=== PATIENT | female | born 1940 | race Caucasian/White ===

== ENCOUNTER → 2017-08-08 | Day surgery (SDC) | payer OTHER ==
[~2017-08-08] VITALS: Ht 160 cm; Wt 77.5 kg
[~2017-08-08] MED LIST: *HYDROmorphone PF 0.5 MG/0.5 ML PERIprocedure ONLY ONE; *diphenhydrAMINE HCL 50 MG/ML VIAL PERIprocedural Use ONLY ONE; *morphine SULFATE 4 MG/ML PERIprocedure ONLY ONE; ACETAMINOPHEN 500 MG CPLT PO PRN; ASCO100029 PO; CALC1TAB87 PO; CHLORHEXIDINE GLUCONATE 2 % 1 PACK (2 CLOTHS) TOPICAL PRN; CHOL5000 PO; COQ-30CA2 PO; DEXAMETHASONE SOD PHOS 4 MG/ML VIAL ONE; DO NOT ADM ANY ANTICOAGULANT DRUGS PRN; EPINEPHrine HCL (1:1000) 1 MG/ML VIAL ONE; INSULIN HUMAN REGULAR 1,000 UNITS/10 ML VIAL SQ PRN; IODI150T PO; LACTATED RINGER'S 1000 ML IV PRN; LACTCAP8 PO; LECI12002 PO; LUTE6CAP2 PO; MELA5 PO; METOPROLOL TARTRATE 25 MG TAB PO PRN; MSM1000C PO; OMEP20TA93 PO; POVIDONE IODINE 5% (ANTISEPSIS KIT) 4 APPLICATIONS EACH NARE PRN; SODIUM CHLORID 0.9% 500 ML IV PRN; TOBRAMYCIN/DEXAMETHASONE OPTH OINT 3.5 GM TUBE ONE; TRIAMCINOLONE ACETONIDE/PF 40 MG/ML OPTH VIAL ONE; VITA1CAP7 PO; VITACAP7 PO; ceFAZolin INJ 1,000 MG VIAL ONE; oxyCODONE/ACETAMINOPHEN 5 MG/325 MG TAB PO PRN
[2017-08-08 11:54] LABS: AUTOMATED NEUTROPHIL # 4.2 TH/MM3 (1.8-7.7); BASOPHIL % 0.6 % (0.0-2.0); EOSINOPHIL # 0.1 TH/MM3 (0-0.4); EOSINOPHIL % 1.5 % (0.0-4.0); HEMATOCRIT 39.3 % (35.0-46.0); HEMOGLOBIN 13.2 GM/DL (11.6-15.3); LYMPH % 29.5 % (9.0-44.0); MEAN CELL VOLUME 85.6 FL (80.0-100.0); MEAN CORPUSCULAR HEMOGLOBIN 28.8 PG (27.0-34.0); MEAN CORPUSCULAR HGB CONC 33.6 % (32.0-36.0); MEAN PLATELET VOLUME 9.8 FL (7.0-11.0); MONO % 6.8 % (0.0-8.0); MONOCYTE # 0.5 TH/MM3 (0-0.9); NEUT % 61.6 % (16.0-70.0); PLATELET COUNT 182 TH/MM3 (150-450); RED BLOOD COUNT 4.59 MIL/MM3 (4.00-5.30); RED CELL DISTRIBUTION WIDTH 13.9 % (11.6-17.2); WHITE BLOOD COUNT 6.9 TH/MM3 (4.0-11.0)
[2017-08-08] MEDS: CYCLOPENTOLATE HCL 1% OPHT SOLN 2 ML BTL LEFT EYE SCH ×3 (12:30→12:55)
[2017-08-08] MEDS: ATROPINE SULFATE 1% OPHT SOLN 5 ML BTL LEFT EYE SCH ×3 (12:31→12:55)
[2017-08-08] MEDS: PHENYLEPHRINE HCL 2.5% OPTH SOLN 2 ML BTL LEFT EYE SCH ×3 (12:32→12:55)
[2017-08-08] MEDS: TROPICAMIDE 1% OPHT SOLN 15 ML BTL LEFT EYE SCH ×3 (12:33→12:55)
--- NOTE | 2017-08-08 15:07 | MP ---
cc: Charmaine Etienne MD DATE OF OPERATION: 08/08/2017 DATE OR OPERATION: 08/08/2017 PREOPERATIVE DIAGNOSIS: Visually significant epiretinal membrane with macular pucker, left eye. POSTOPERATIVE DIAGNOSIS: Visually significant epiretinal membrane with macular pucker, left eye. PROCEDURE PERFORMED: Trans pars plana vitrectomy with membranectomy and air-fluid exchange, left eye. SURGEON: Paulette Etienne MD ANESTHESIA: General laryngeal mask anesthesia. INDICATIONS: Ms. Salazar is a 77-year-old woman who started developing distortion and blurred vision in her right eye. Her vision was limited to 20/50 and she was found to have a visually significant epiretinal membrane with mild macular pucker in the left eye. She wished to proceed electively with vitrectomy and membrane peel. The risks and benefits of surgery were discussed with the patient and informed consent was obtained. No guarantee was made as to visual outcome. She was brought to [facility] operating room #[facility] the [facility]. Appropriate anesthesia monitoring devices were applied and she was placed under general anesthesia using a laryngeal mask. The left eye was identified as the operative site and then prepped and draped in the usual and sterile fashion. The microscope was brought around and adjusted and a lid speculum was placed. Prior to starting the procedure, an appropriate timeout was called with the surgical team agreeing to the surgical site, and proposed procedure. Using the Yon 23-gauge vitrectomy system, the trocar cannulas were placed, 3.5 mm posterior to the limbus after first displacing the conjunctiva and with a bevelled entrance through the sclera. The first one was placed at approximately 3 o'clock and verified to be in the posterior chamber. An infusion cannula was affixed to it and turned on. Two additional trocar cannulas were placed at 10 and 2 o'clock. A small amount of Kenalog was injected into the vitreous chamber to help visualize the vitreous and then, using a flat contact lens, a core vitrectomy was carried out. Posterior hyaloid separation was already present. The BIOM wide-angle viewing system was used to remove more peripheral vitreous. Using the flat contact lens, the membrane was engaged inferior temporal to the fovea and then peeled upwards and removed with the soft-tipped linear extrusion needle on aspiration. The fundus was then inspected with the indirect ophthalmoscope and scleral depression. No retinal breaks were found. A partial air-fluid exchange was performed using the soft-tipped linear extrusion needle. The cannulas were then removed, one by one. The superonasal sclerotomy would not stop leaking air, so an interrupted 7-0 Vicryl was placed there with closure of the conjunctiva overlying that with another 7-0 Vicryl suture. This left the eye with good pressure and no visible air leaks. Atropine drops were placed on the cornea. Subconjunctival injections of Ancef 125 mg in 0.5 mL and Decadron 2 mg in 0.5 mL were given at separate sites. The lid speculum was removed. Atropine drops were placed on the cornea. After the patient was undraped, TobraDex ointment were placed on the cornea and then the left eye was patched and shielded. The patient had the laryngeal mass removed in the room and was returned to Recovery area in good condition, lying on her right side. MD BRYAN Sharpe/SB , 02:44 PM , 03:06 PM
[2017-08-08 16:20] VITALS: BP 144/70; PULSE 75; RESP 18; TEMP 97.2; O2SAT 93
--- NOTE | 2017-08-09 08:41 | EKG ---
Date Performed: 08/08/2017 Time Performed: 11:04:37 PTAGE: 77 years EKG: Sinus rhythm BORDERLINE LEFT AXIS DEVIATION MODERATE VOLTAGE CRITERIA FOR LVH BORDERLINE ECG NO PREVIOUS TRACING DOCTOR: Gavin Waller Interpretating Date/Time 08/09/2017 08:40:45
== END | disposition home or self-care (01) ==
LOC: HSDC 10:24
PROVIDERS: ATTEND Ophthalmology
DX: H35.372 Puckering of macula, left eye (principal); R94.31 Abnormal electrocardiogram [ECG] [EKG]
CPT/HCPCS: 00145; 67041; 85025; 93005; J0171; J0690; J1100; J1170; J1200; J2270; J3010; J3300; J7120